=== PATIENT | female | born 1970 | race Two or more races ===

== ENCOUNTER 2017-04-18 15:26 | Emergency (ER) | payer BC ==
[~2017-04-18] VITALS: Ht 154.9 cm; Wt 88.9 kg
[~2017-04-18 15:26] MED LIST: COL100 PO; COL250 PO; FAMOTIDINE20 MG PO; GAS RELIEF80 MG CH; LIPI20 PO; NOR10T PO; PAN PO; PER5 PO; PRILOSEC20 MG PO
[2017-04-18 17:24] VITALS: Ht 154.9 cm; Wt 88.9 kg
[2017-04-18 20:02] VITALS: BP 124/69
== END 2017-04-18 20:02 | disposition home or self-care (01) ==
LOC: ED 15:26
DX: G43.909 Migraine, unspecified, not intractable, without status migrainosus (principal); E78.00 Pure hypercholesterolemia, unspecified
CPT/HCPCS: J1170; J1885; Q0162